=== PATIENT | female | born 1970 | race Caucasian/White ===

== ENCOUNTER 2017-08-15 00:47 | Inpatient (IN) ==
--- NOTE | 2017-08-15 01:26 | Emergency Department Note ---
Disposition Clinical Impression: Suicidal ideation Disposition: Admitted As Inpatient Condition: Good Time of Disposition: 05:25 (Admitted to 1A; Accepted by Dr. Orellana) Psych HPI - General Chief Complaint: ED Psychiatric Symptoms Stated Complaint: SI Time Seen by Provider: 08/15/17 01:25 Source: patient Mode of arrival: ambulatory Limitations: no limitations Nursing Notes Reviewed: Yes Vital Signs Reviewed: Yes - History of Present Illness HPI Narrative: Patient is a 46-year-old female with past history of bipolar disorder, borderline personality disorder, rheumatoid arthritis, previous drug abuse. She presents today due to suicidal ideation. Patient is currently in a rehabilitation center and has been clean for the past 2 months. Over the past few days, she has been came more depressed than usual, has thoughts of hurting herself, has a plan to shoot herself if she has access to a gun. She does have a history of suicide attempts in the past and has been hospitalized 2-3 times in the past due to ingestion of medications, cutting. She denies any cutting, self-harm, ingestions today prior to arrival. She denies any homicidal ideation , visual or auditory hallucinations. Denies any chest pain, shortness breath, nausea, vomiting, fevers, diarrhea, abdominal pain. She does have chronic joint pain from rheumatoid arthritis. - Related Data Home Medications Medication Instructions Recorded Confirmed Ibuprofen 04/15/17 Levothyroxine 04/15/17 Lisinopril 04/15/17 Symbicort 80/4.5 04/15/17 Ventolin Hfa 04/15/17 Zoloft 04/15/17 04/15/17 Previous Rx's Medication Instructions Recorded Clotrimazole [Itch Relief] 1 gm TP BID #15 cream..g. 04/15/17 Fluconazole [Diflucan] 150 mg PO Q3D #3 tab 04/15/17 HYDROcodone/Acet 5/325 mg [Marissa 1 tab PO Q6H PRN #10 tab 05/04/17 5-325 mg] Clindamycin [Cleocin] 300 mg PO TID #30 capsule 06/03/17 Ranitidine HCl [Acid Furnace Tender] 150 mg PO DAILY #30 tablet 06/06/17 GuaiFENesin ER [Mucinex] 1,200 mg PO BID #20 tbbp.12hr 06/13/17 Meclizine HCl [Verticalm] 25 mg PO TID PRN #20 tablet 06/13/17 methylPREDNISolone [Medrol] 4 mg PO TAPER #21 tablet 06/13/17 Allergies Allergy/AdvReac Type Severity Reaction Status Date / Time Penicillins [PCN] Allergy Anaphylaxis Verified 06/06/17 11:20 All systems ED: reviewed and negative except as stated. Constitutional: Denies: fever Cardiovascular: Denies: chest pain Respiratory: Denies: dyspnea Gastrointestinal: Denies: abdominal pain, nausea, vomiting, diarrhea Genitourinary: Denies: urgency, dysuria Musculoskeletal: Reports: arthralgia. Denies: myalgia Integumentary: Denies: rash Neurological: Denies: headache, weakness, numbness, paresthesias Past Medical History - Past Medical History Attestation: Yes The following information was validated with the patient. Source: patient Medical history: Reports: hypertension, RA, thyroid disease Psychiatric history: Reports: anxiety, bipolar, depression, PTSD, other - Social History Smoking Status: Current every day smoker Smokeless Tobacco Status: No Alcohol use: Reports: none Drug use: Reports: cocaine, marijuana Physical Exam - General Limitations: no limitations General appearance: alert, in no apparent distress - Head Head exam: atraumatic, normocephalic, normal inspection - Eye Eye exam: Present: normal appearance, PERRL, EOMI - ENT ENT exam: normal exam, normal oropharynx, mucous membranes moist - Neck Neck exam: Present: normal inspection, full ROM, trachea midline - Chest Chest inspection: Present: normal inspection, symmetric chest wall rise - Respiratory Respiratory exam: Present: normal lung sounds bilaterally - Cardiovascular Cardiovascular exam: Present: regular rate, normal rhythm, normal heart sounds - Abdominal Exam Abdominal exam: Present: soft, Non-Tender. Absent: tenderness, distention, guarding, rebound, rigidity - Extremities Exam Extremities exam: Present: normal inspection, full ROM. Absent: tenderness, pedal edema - Back Exam Back exam: Present: normal inspection, full ROM. Absent: tenderness - Neurological Exam Neurological exam: Present: alert, oriented X3 - Psychiatric Psychiatric exam: Present: normal affect, normal mood - Skin Skin exam: Present: warm, dry, intact, normal color Course Course Narrative: Vitals within normal limits. Physical exam benign. Patient has suicidal ideation with plan. We will obtain medical clearance and then call behavioral health team for further evaluation. 05:25 patient has been evaluated by behavioral team, psychiatrist has been consulted. Patient will be admitted at this time for further care. [place] slip has been signed and placed on chart. Vital Signs Temperature 97.6 F 08/15/17 00:48 Pulse Rate 89 08/15/17 00:48 Respiratory Rate 16 08/15/17 00:48 Blood Pressure 135/95 08/15/17 00:48 O2 Sat by Pulse Oximetry 97 08/15/17 00:48 Temperature 97.6 F 08/15/17 00:48 Pulse Rate 89 08/15/17 00:48 Respiratory Rate 16 08/15/17 00:48 Blood Pressure 135/95 08/15/17 00:48 O2 Sat by Pulse Oximetry 97 08/15/17 00:48 Oxygen Delivery Oxygen Delivery Room Air Psych - MDM Narrative Medical decision making narrative: Vitals within normal limits. Physical exam benign. Patient has suicidal ideation with plan. We will obtain medical clearance and then call behavioral health team for further evaluation. 05:25 patient has been evaluated by behavioral team, psychiatrist has been consulted. Patient will be admitted at this time for further care. [place] slip has been signed and placed on chart. - Lab Data Lab results reviewed: Yes I reviewed the patient's lab results. Result diagrams: 08/15/17 01:15 08/15/17 01:15 Lab Results 08/15/17 08/15/17 08/15/17 Range/Units 00:56 00:56 01:15 WBC 11.1 (4.3-11.1) K/mcL RBC 4.91 (3.82-4.97) M/mcL Hgb 14.6 (11.5-15.4) g/dL Hct 42.3 (35.3-44.9) % MCV 86.2 (83.0-100.0) fL MCH 29.7 (28.0-33.3) pg MCHC 34.5 (31.6-35.5) g/dL RDW 12.3 (11.5-14.5) % Plt Count 332 (140-400) K/mcL MPV 10.1 (9.4-12.4) fL Immature Gran % 0.7 (0-4) % Seg Neutrophils % 67.8 % Lymphocytes % 22.5 % Monocytes % 7.5 % Eosinophils % 0.7 % Basophils % 0.8 % Neutrophils # 7.5 (1.6-8.9) K/mcL Lymphocytes # 2.5 (0.6-4.6) K/mcL Monocytes # 0.8 (0.0-1.3) K/mcL Eosinophils # 0.1 (0.0-0.6) K/mcL Basophils # 0.1 (0.0-0.2) K/mcL Sodium (136-145) mEq/L Potassium (3.5-5.1) mEq/L Chloride (98-107) mEq/L Carbon Dioxide (23-29) mEq/L BUN (6-20) mg/dL Creatinine (0.60-1.20) mg/dL Est GFR ( Amer) (> 60) Est GFR (Non-Af Amer) (> 60) BUN/Creatinine Ratio (6-26) Glucose (70-105) mg/dL Calculated Osmolality (280-300) Calcium (8.6-10.3) mg/dL Urine Color Yellow (Yellow) Urine Clarity Clear (Clear) Urine pH 6.0 (5.0-8.0) pH Units Ur Specific [place] 1.020 (1.010-1.025) Urine Protein Negative (Neg-Trace) mg/dL Urine Glucose (UA) Normal (Normal) mg/dL Urine Ketones Negative (Negative) mg/dL Urine Blood Negative (Negative) Urine Nitrite Negative (Negative) Urine Bilirubin Negative (Negative) Urine Urobilinogen Normal (Normal) mg/dL Ur Leukocyte Esterase Negative (Negative) Salicylates (15.0-30.0) mg/dL Urine Opiates Screen Negative (Jlzwpz=476) ng/mL Acetaminophen (10-20) mcg/mL Ur Barbiturates Screen Negative (Bolefh=170) ng/mL Ur Phencyclidine Scrn Negative (Cutoff=25) ng/mL Ur Amphetamines Screen Negative (Lwatbo=9186) ng/mL U Benzodiazepines Scrn Negative (Ikgqmb=756) ng/mL Urine Cocaine Screen Negative (Cutoff= 300) ng/mL U Marijuana (THC) Screen Negative (Cutoff = 50) ng/mL Ethyl Alcohol (Less than 10) mg/dL 08/15/17 Range/Units 01:15 WBC (4.3-11.1) K/mcL RBC (3.82-4.97) M/mcL Hgb (11.5-15.4) g/dL Hct (35.3-44.9) % MCV (83.0-100.0) fL MCH (28.0-33.3) pg MCHC (31.6-35.5) g/dL RDW (11.5-14.5) % Plt Count (140-400) K/mcL MPV (9.4-12.4) fL Immature Gran % (0-4) % Seg Neutrophils % % Lymphocytes % % Monocytes % % Eosinophils % % Basophils % % Neutrophils # (1.6-8.9) K/mcL Lymphocytes # (0.6-4.6) K/mcL Monocytes # (0.0-1.3) K/mcL Eosinophils # (0.0-0.6) K/mcL Basophils # (0.0-0.2) K/mcL Sodium 136 (136-145) mEq/L Potassium 4.0 (3.5-5.1) mEq/L Chloride 105 (98-107) mEq/L Carbon Dioxide 22 L (23-29) mEq/L BUN 6 (6-20) mg/dL Creatinine 0.59 L (0.60-1.20) mg/dL Est GFR ( Amer) > 60 (> 60) Est GFR (Non-Af Amer) > 60 (> 60) BUN/Creatinine Ratio 10 (6-26) Glucose 115 H (70-105) mg/dL Calculated Osmolality 281 (280-300) Calcium 10.0 (8.6-10.3) mg/dL Urine Color (Yellow) Urine Clarity (Clear) Urine pH (5.0-8.0) pH Units Ur Specific [place] (1.010-1.025) Urine Protein (Neg-Trace) mg/dL Urine Glucose (UA) (Normal) mg/dL Urine Ketones (Negative) mg/dL Urine Blood (Negative) Urine Nitrite (Negative) Urine Bilirubin (Negative) Urine Urobilinogen (Normal) mg/dL Ur Leukocyte Esterase (Negative) Salicylates < 2.5 L (15.0-30.0) mg/dL Urine Opiates Screen (Xhowpe=799) ng/mL Acetaminophen < 10 L (10-20) mcg/mL Ur Barbiturates Screen (Ppdguq=713) ng/mL Ur Phencyclidine Scrn (Cutoff=25) ng/mL Ur Amphetamines Screen (Ydxyzl=2996) ng/mL U Benzodiazepines Scrn (Axwxbs=156) ng/mL Urine Cocaine Screen (Cutoff= 300) ng/mL U Marijuana (THC) Screen (Cutoff = 50) ng/mL Ethyl Alcohol < 10 (Less than 10) mg/dL Psychiatric Medical Clearance - Medical Clearance Checklist Medical History: Suicidal ideation (Acute) Benign paroxysmal positional vertigo (Inactive) Cellulitis (Inactive) Chest pain (Inactive) Exudative pharyngitis (Inactive) History of substance abuse (Inactive) Plantar fasciitis of right foot (Inactive) Yeast infection of the skin (Inactive) No Social History Section defined Current Vitals: Last Vital Signs Temp 97.6 F 08/15/17 00:48 Pulse 89 08/15/17 00:48 Resp 16 08/15/17 00:48 BP 135/95 08/15/17 00:48 Pulse Ox 97 08/15/17 00:48 Psychiatric Lab Panel: Drug Levels and Toxicity 08/15/17 08/15/17 00:56 01:15 Urine Opiates Screen Negative Acetaminophen < 10 L Ur Barbiturates Screen Negative Ur Phencyclidine Scrn Negative Ur Amphetamines Screen Negative U Benzodiazepines Scrn Negative Urine Cocaine Screen Negative U Marijuana (THC) Screen Negative Ethyl Alcohol < 10 Abnormal Labs: Abnormal lab results Carbon Dioxide 22 mEq/L (23-29) L 08/15/17 01:15 Creatinine 0.59 mg/dL (0.60-1.20) L 08/15/17 01:15 Glucose 115 mg/dL (70-105) H 08/15/17 01:15 Salicylates < 2.5 mg/dL (15.0-30.0) L 08/15/17 01:15 Acetaminophen < 10 mcg/mL (10-20) L 08/15/17 01:15 Attestation Statement - Attestation Attestation: Dr. Hebert note: Patient medically stable in the ER. Admitted to psychiatrist on-call in stable and improved condition. Suicidal ideation with plan.
[2017-08-15 01:28] LABS: Basophils # 0.1 K/mcL (0.0-0.2); Basophils % 0.8 %; Eosinophils # 0.1 K/mcL (0.0-0.6); Eosinophils % 0.7 %; Hematocrit 42.3 % (35.3-44.9); Hemoglobin 14.6 g/dL (11.5-15.4); Immature Granulocytes % 0.7 % (0-4); Lymphocytes # 2.5 K/mcL (0.6-4.6); Lymphocytes % 22.5 %; Mean Corpuscular HGB Conc 34.5 g/dL (31.6-35.5); Mean Corpuscular Hemoglobin 29.7 pg (28.0-33.3); Mean Corpuscular Volume 86.2 fL (83.0-100.0); Mean Platelet Volume 10.1 fL (9.4-12.4); Monocytes # 0.8 K/mcL (0.0-1.3); Monocytes % 7.5 %; Neutrophils # 7.5 K/mcL (1.6-8.9); Platelet Count 332 K/mcL (140-400); Red Blood Count 4.91 M/mcL (3.82-4.97); Red Cell Distribution Width 12.3 % (11.5-14.5); Segmented Neutrophils % 67.8 %
[2017-08-15 01:29] LABS: Bilirubin,Urine Negative (Negative); Blood,Urine Negative (Negative); Clarity,Urine Clear (Clear); Color,Urine Yellow (Yellow); Glucose,Urine (UA) Normal (Normal); Ketones,Urine Negative (Negative); Leukocyte Esterase,Urine Negative (Negative); Nitrite,Urine Negative (Negative); Protein,Urine Negative (Neg-Trace); Urobilinogen,Urine Normal (Normal)
[2017-08-15 01:53] LABS: Amphetamine Screen,Urine Negative ng/mL (Cutoff=1000); Barbiturate Screen,Urine Negative ng/mL (Cutoff=200); Benzodiazepines Screen,Urine Negative ng/mL (Cutoff=200); Cannabinoid Screen,Urine Negative ng/mL (Cutoff = 50); Cocaine Screen,Urine Negative ng/mL (Cutoff= 300); Opiate Screen,Urine Negative ng/mL (Cutoff=300); Phencyclidine Screen,Urine Negative ng/mL (Cutoff=25)
[2017-08-15 02:17] LABS: Acetaminophen < 10 mcg/mL (10-20); BUN/Creatinine Ratio 10 (6-26); Blood Urea Nitrogen 6 mg/dL (6-20); Carbon Dioxide 22 mEq/L (23-29); Chloride 105 mEq/L (98-107); Ethanol < 10 mg/dL (Less than 10); Glucose 115 mg/dL (70-105); Osmolality,Calculated 281 (280-300); Salicylate < 2.5 mg/dL (15.0-30.0); Sodium 136 mEq/L (136-145); eGFR For African Americans > 60 (> 60); eGFR For Non-African Americans > 60 (> 60)
[2017-08-15] MEDS ORDERED: Mag Hydrox/Al Hydrox/Simeth 30 ML UDC PO PRN (05:41)
[2017-08-15] MEDS ORDERED: *HR* LORazepam 1 MG TABLET PO PRN (05:41)
[2017-08-15] MEDS ORDERED: Haloperidol Lactate 5 MG/ML VIAL IM PRN (05:41)
[2017-08-15] MEDS ORDERED: *HR* LORazepam 2 MG/ML VIAL IM PRN (05:41)
--- NOTE | 2017-08-15 16:00 | Psychiatry History & Physical ---
Date of Encounter: 08/15/17 Time of Encounter: 16:00 History of Present Illness Patient Stated Chief Complaint: suicide idation Medicare Admission Attestation: For traditional Medicare patients the provided hospital inpatient services are reasonable and necessary and in the case of services not specified as inpatient -only under 42 CFR 419.22 (n), that they are appropriately provided as inpatient services in accordance 42 CFR 412.3. For Critical Access Hospital the patient may reasonably be expected to be discharged or transferred to a hospital within 96 hours after admission to the Critical Access Hospital. Admitted From: Emergency Dept Plans for Post Hospital Care: Transfer Other History of Present Illness: Ms. Becerril is a 46 year old female The patient was brought in from [facility]. She had been residing there. Chief complaint having thoughts of not waking up and lack of sleep I was depressed and was not sure whether was recovery versus depression. History of present illness. Last night the patient had depression she was tossing and turning and she saw images where she shot herself with a gun. She is praying that she might and she thought about going and getting a gun and using she presented in the emergency room. The patient has a history of substance abuse and her last use was 03/31/2017. This included cocaine. She had 5 months clean and she has a history of a long period of sobriety 10 years. 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 Patient is also smoker of tobacco. The patient's been depressed and going to mental health. Her previous discharge summary shows inpatient and outpatient treatment or psychiatric hospitalizations or too numerous to count there began at age 16 with an overdose of sleeping pills and included counseling at site [facility]. A diagnosis of bipolar disorder was given but later borderline personality disorder was diagnosed the alcohol caused anger problems and relationship problems no legal problems or health problems. She was 30 she was seen by Dr. Dwaine long [facility] she 30 days clean but relapsed. Between the ages of 32 and 46 she had her period of time. Past medical history essentially negative for surgery but she did have an overdose of Geodon. Illnesses include GERD hypertension thyroid disease. Patient has problems and allergy to penicillin. She is on Synthroid lisinopril Motrin. Family history significant for mother with heroin abuse. Social history reveals the patient was in the [employer]. She did not go to [place] to care for mother. Review of systems. The patient has a dermatitis with scratching on the anterior portion legs. Patient has a diagnosis of rheumatoid arthritis and now needs to get rheumatoid treatment but to do this she may have to go to [email or web address] and the [facility] [place] she feels that this will damage her relationship with her son on her Past Med Surg Social Fam HX - Past Medical History Source: patient Medical history: hypertension, RA, thyroid disease - Past Psychiatric History Psychiatric history: Reports: bipolar, previous psychiatric hospitalization Family psychiatric history: Yes Family History of Suicide: None - Past Surgical History Surgical History: no surgical history - Social History Smoking Status: Current every day smoker Smokeless Tobacco Status: No Alcohol use: none Drug use: cocaine, marijuana Occupational status: unemployed Current living situation: Other Activity Level: Independent ambulation Recent Out of Country Travel Within the Last 8 Weeks: No Exposure or Possible Exposure to Illness During Travel: No Medications & Allergies Ibuprofen [Motrin] 600 mg PO Q8HR PRN 08/15/17 [History] Levothyroxine Sodium [Synthroid] 200 mcg PO 0630 08/15/17 [History] Lisinopril [Zestril] 10 mg PO DAILY 08/15/17 [History] Sertraline [Zoloft] 100 mg PO DAILY 08/15/17 [History] 3 Allergy/AdvReac Type Severity Reaction Status Date / Time Penicillins [PCN] Allergy Anaphylaxis Verified 08/15/17 10:21 Review of Systems ROS limited: due to patient condition Psychiatric: Reports: depression, suicidal ideation, difficulty concentrating Exam - HEENT Head exam IM: Present: atraumatic Eye exam IM: Present: EOMI, normal appearance, PERRL ENT exam IM: Present: normal exam - Neurological Neurological exam: Present: CN II-XII intact - Respiratory Respiratory exam IM: Present: CTAB - GI/Abdominal GI/Abdominal exam IM: Present: normal bowel sounds, soft. Absent: tenderness - Extremities Extremities exam IM: Present: full ROM - Skin Skin exam IM: Present: dry, warm - Constitutional Vitals: Temp Pulse Resp BP Pulse Ox 97.3 F L 73 14 119/71 97 08/15/17 09:00 08/15/17 09:00 08/15/17 09:00 08/15/17 09:00 08/15/17 00:48 General appearance: age & developmentally appropriate, well-groomed, well- nourished - Musculoskeletal Gait: normal Station: relaxed Strength & Tone: normal for patient - Psychiatric Patient Orientation: Yes Person, Yes Time, Yes Place Level of alertness: Alert Behavior: calm, cooperative Mood Description: Depressed Affect description: full range, tearful Speech Volume: Normal, Soft/Quiet Speech pattern: normal rate, normal rhythm, normal tone, fluent, spontaneous, monotone Language & Vocabulary: consistent with education Thought Process: Linear, Goal Oriented, Thought Blocking Thought Content: Yes Suicidal ideation, No Homicidal ideation, No Overt delusions Perceptual Disturbances: No Auditory hallucinations, No Visual hallucinations Attention Span Ability: Capable of Focused Attention Memory Description: Grossly Intact Patient Reliability: Questionable Historian Fund of knowledge: Yes abstraction ability, Yes average, Yes aware of current events Intelligence Estimate: Average Judgment: Limited Insight: Partial Results - Labs Labs: Laboratory Last Values WBC 11.1 K/mcL (4.3-11.1) 08/15/17 01:15 RBC 4.91 M/mcL (3.82-4.97) 08/15/17 01:15 Hgb 14.6 g/dL (11.5-15.4) 08/15/17 01:15 Hct 42.3 % (35.3-44.9) 08/15/17 01:15 MCV 86.2 fL (83.0-100.0) 08/15/17 01:15 MCH 29.7 pg (28.0-33.3) 08/15/17 01:15 MCHC 34.5 g/dL (31.6-35.5) 08/15/17 01:15 RDW 12.3 % (11.5-14.5) 08/15/17 01:15 Plt Count 332 K/mcL (140-400) 08/15/17 01:15 MPV 10.1 fL (9.4-12.4) 08/15/17 01:15 Immature Gran % 0.7 % (0-4) 08/15/17 01:15 Seg Neutrophils % 67.8 % 08/15/17 01:15 Lymphocytes % 22.5 % 08/15/17 01:15 Monocytes % 7.5 % 08/15/17 01:15 Eosinophils % 0.7 % 08/15/17 01:15 Basophils % 0.8 % 08/15/17 01:15 Neutrophils # 7.5 K/mcL (1.6-8.9) 08/15/17 01:15 Lymphocytes # 2.5 K/mcL (0.6-4.6) 08/15/17 01:15 Monocytes # 0.8 K/mcL (0.0-1.3) 08/15/17 01:15 Eosinophils # 0.1 K/mcL (0.0-0.6) 08/15/17 01:15 Basophils # 0.1 K/mcL (0.0-0.2) 08/15/17 01:15 Sodium 136 mEq/L (136-145) 08/15/17 01:15 Potassium 4.0 mEq/L (3.5-5.1) 08/15/17 01:15 Chloride 105 mEq/L (98-107) 08/15/17 01:15 Carbon Dioxide 22 mEq/L (23-29) L 08/15/17 01:15 BUN 6 mg/dL (6-20) 08/15/17 01:15 Creatinine 0.59 mg/dL (0.60-1.20) L 08/15/17 01:15 Est GFR ( Amer) > 60 (> 60) 08/15/17 01:15 Est GFR (Non-Af Amer) > 60 (> 60) 08/15/17 01:15 BUN/Creatinine Ratio 10 (6-26) 08/15/17 01:15 Glucose 115 mg/dL (70-105) H 08/15/17 01:15 Calculated Osmolality 281 (280-300) 08/15/17 01:15 Calcium 10.0 mg/dL (8.6-10.3) 08/15/17 01:15 Urine Color Yellow (Yellow) 08/15/17 00:56 Urine Clarity Clear (Clear) 08/15/17 00:56 Urine pH 6.0 pH Units (5.0-8.0) 08/15/17 00:56 Ur Specific [place] 1.020 (1.010-1.025) 08/15/17 00:56 Urine Protein Negative mg/dL (Neg-Trace) 08/15/17 00:56 Urine Glucose (UA) Normal mg/dL (Normal) 08/15/17 00:56 Urine Ketones Negative mg/dL (Negative) 04/20/18 00:56 Urine Blood Negative (Negative) 08/15/17 00:56 Urine Nitrite Negative (Negative) 08/15/17 00:56 Urine Bilirubin Negative (Negative) 08/15/17 00:56 Urine Urobilinogen Normal mg/dL (Normal) 08/15/17 00:56 Ur Leukocyte Esterase Negative (Negative) 08/15/17 00:56 Salicylates < 2.5 mg/dL (15.0-30.0) L 08/15/17 01:15 Urine Opiates Screen Negative ng/mL (Sulxlr=229) 08/15/17 00:56 Acetaminophen < 10 mcg/mL (10-20) L 08/15/17 01:15 Ur Barbiturates Screen Negative ng/mL (Kdanrz=536) 08/15/17 00:56 Ur Phencyclidine Scrn Negative ng/mL (Cutoff=25) 08/15/17 00:56 Ur Amphetamines Screen Negative ng/mL (Moqpgm=5568) 08/15/17 00:56 U Benzodiazepines Scrn Negative ng/mL (Wtydib=856) 08/15/17 00:56 Urine Cocaine Screen Negative ng/mL (Cutoff= 300) 08/15/17 00:56 U Marijuana (THC) Screen Negative ng/mL (Cutoff = 50) 08/15/17 00:56 Ethyl Alcohol < 10 mg/dL (Less than 10) 08/15/17 01:15 Assessment and Plan (1) Bipolar disorder, current episode mixed, severe, without psychotic features Current visit: Yes Status: Acute Plan: Admit inpatient for safety and stabilization, Close observation Risks, benefits, side effects, alternatives discussed w/pt: Yes Patient agreeable to treatment: Yes Plans for Post Hospital Care: at Medical Facility (2) Other specific personality disorders Current visit: Yes Status: Acute Plan: Admit inpatient for safety and stabilization Risks, benefits, side effects, alternatives discussed w/pt: Yes Patient agreeable to treatment: Yes Plans for Post Hospital Care: at Home (3) Suicidal ideation Current visit: Yes Status: Acute Plan: Admit inpatient for safety and stabilization, Close observation Risks, benefits, side effects, alternatives discussed w/pt: Yes Patient agreeable to treatment: Yes Plans for Post Hospital Care: Transfer Other Estimated Length of Stay (Days): 7
[2017-08-15] MEDS: Ibuprofen 400 MG TABLET PO PRN (20:30)
[2017-08-15] MEDS: hydrOXYzine pamoate 25 MG CAPSULE PO PRN (21:35)
[2017-08-15] MEDS: traZODone 50 MG TABLET PO PRN (21:35)
[2017-08-16] MEDS: Venlafaxine XR (24 HR) 150 MG CAP.ER.24H PO SCH (09:13)
[2017-08-16] MEDS: Ibuprofen 400 MG TABLET PO PRN ×2 (09:15→16:43)
--- NOTE | 2017-08-16 15:42 | Psychiatry Progress Note ---
Date of Encounter: 08/16/17 Time of Encounter: 12:45 Subjective Interval history: Patient seen and discussed on rounds by a multidisciplinary treatment team. There no reported behavioral issues or incident overnight. She was calm, cooperative and well related. Patient admitted yesterday for SI. She continue to endorse depressive symptoms and passive suicidal thoughts with no plan or intent. She reported worsening depressive symptoms the past week due to ongoing stressors identified as her recent diagnosis of RA, being constant pain and her inability to get a follow up to see a auto body worker till October. She was started on Effexor ER 150mg yesterday and denied any noted side effects. On review of symptoms, she denied any mood or psychotic symptoms including AH/VH/HI. She reported 5months of sobriety and utox was negative and presentation. Review of Systems Constitutional: Denies: fever, chills, weakness, weight change Eyes: Denies: eye pain, vision change Ears, Nose, Throat: Denies: ear pain, throat pain, dental pain, hearing loss, congestion Cardiovascular: Denies: chest pain, palpitations, dyspnea on exertion Respiratory: Denies: cough, dyspnea, wheezes Gastrointestinal: Denies: abdominal pain, nausea, vomiting, diarrhea, constipation Musculoskeletal: Reports: joint pain, myalgia Psychiatric: Reports: depression, suicidal ideation, difficulty concentrating Results - Vital Signs Vital Signs: Temp Pulse Resp BP Pulse Ox 97.2 F L 76 16 122/78 97 08/16/17 09:00 08/16/17 09:00 08/16/17 09:00 08/16/17 09:00 08/15/17 00:48 Assessment and Plan (1) Suicidal ideation Current visit: Yes Status: Acute Risks, benefits, side effects, alternatives discussed w/pt: Yes Patient agreeable to treatment: Yes (2) Bipolar disorder, current episode mixed, severe, without psychotic features Current visit: Yes Status: Acute Risks, benefits, side effects, alternatives discussed w/pt: Yes Patient agreeable to treatment: Yes (3) Other specific personality disorders Current visit: Yes Status: Acute Risks, benefits, side effects, alternatives discussed w/pt: Yes Patient agreeable to treatment: Yes Consult Discharge Plan - Plan Referrals: [facility] [Outside] - 09/15/17 1:00 pm (The above appointment is with for Dr. Tammie Roylance outpatient psychiatric assessment and medication management services. Please arrive 30 minutes early to complete paperwork. Please bring your photo ID (bring proof of address if you do not have an ID) and medication list. The above appointment(s) reflects first availability. You may contact the office regularly to check for cancellations that may allow you to be seen sooner. Additionally, the new director of casework services assigned to you will contact you directly to schedule your intake appointment for case management and mental health counseling services. ) [facility] [Outside] (You will resume weekly substance abuse and mental health counseling services with [facility] upon return to sober living.) Psychiatry Exam - Constitutional Vitals: Temp Pulse Resp BP Pulse Ox 97.2 F L 76 16 122/78 97 08/16/17 09:00 08/16/17 09:00 08/16/17 09:00 08/16/17 09:00 08/15/17 00:48 General appearance: age & developmentally appropriate - Musculoskeletal Gait: slow - Psychiatric Patient Orientation: Yes Person, Yes Time, Yes Place, Yes Circumstance Level of alertness: Alert Behavior: calm, cooperative Psychomotor activity: Normal Eye Contact: Maintains Eye Contact Mood Description: Depressed Affect description: congruent with mood Speech Volume: Normal Speech pattern: normal rate, normal rhythm, normal tone Language & Vocabulary: consistent with education Thought Process: Logical, Goal Oriented Thought Content: Yes Suicidal ideation Perceptual Disturbances: No Auditory hallucinations, No Visual hallucinations Attention Span Ability: Capable of Focused Attention Memory Description: Grossly Intact Patient Reliability: Reliable Historian Fund of knowledge: Yes average Intelligence Estimate: Average Judgment: Poor Insight: Partial
[2017-08-16] MEDS: traZODone 50 MG TABLET PO PRN (21:12)
[2017-08-17] MEDS: Venlafaxine XR (24 HR) 150 MG CAP.ER.24H PO SCH (10:32)
[2017-08-17] MEDS: MOM Conc 10 ML UD.LIQ PO PRN (12:50)
--- NOTE | 2017-08-17 13:10 | Psychiatry Progress Note ---
Date of Encounter: 08/17/17 Time of Encounter: 01:04 Subjective Interval history: Patient seen and discussed on rounds by a multidisciplinary treatment team. There no reported behavioral issues or incident overnight. She was calm, cooperative and well related. She reported improvement improvement her depressive symptoms and continue to endorse SI. Feels hopeless, helpless and does not trust anyone any more. She is compliant with her medications and denied any side effects. Continue to reported suboptimal effect of her Ibuprofen , On review of symptoms, she denied any mood or psychotic symptoms including AH /VH/HI. Review of Systems Constitutional: Denies: fever, chills, weakness, weight change Eyes: Denies: eye pain, vision change Ears, Nose, Throat: Denies: ear pain, throat pain, dental pain, hearing loss, congestion Cardiovascular: Denies: chest pain, palpitations, dyspnea on exertion Respiratory: Denies: cough, dyspnea, wheezes Gastrointestinal: Denies: abdominal pain, nausea, vomiting, diarrhea, constipation Musculoskeletal: Denies: joint swelling, joint pain Neurological: Denies: headache, weakness, numbness, memory loss Psychiatric: Reports: depression, suicidal ideation, difficulty concentrating, hopelessness Results - Vital Signs Vital Signs: Temp Pulse Resp BP Pulse Ox 97.6 F 78 16 114/79 97 08/17/17 09:00 08/17/17 09:00 08/17/17 09:00 08/17/17 09:00 08/15/17 00:48 Assessment and Plan (1) Suicidal ideation Current visit: Yes Status: Acute Risks, benefits, side effects, alternatives discussed w/pt: Yes Patient agreeable to treatment: Yes (2) Bipolar disorder, current episode mixed, severe, without psychotic features Current visit: Yes Status: Acute Risks, benefits, side effects, alternatives discussed w/pt: Yes Patient agreeable to treatment: Yes (3) Other specific personality disorders Current visit: Yes Status: Acute Risks, benefits, side effects, alternatives discussed w/pt: Yes Patient agreeable to treatment: Yes Consult Discharge Plan - Plan Referrals: [facility] [Outside] - 09/15/17 1:00 pm (The above appointment is with for Dr. Tammie Humphrey outpatient psychiatric assessment and medication management services. Please arrive 30 minutes early to complete paperwork. Please bring your photo ID (bring proof of address if you do not have an ID) and medication list. The above appointment(s) reflects first availability. You may contact the office regularly to check for cancellations that may allow you to be seen sooner. Additionally, the new family preservation caseworker assigned to you will contact you directly to schedule your intake appointment for case management and mental health counseling services. ) [facility] (You will resume weekly substance abuse and mental health counseling services with [facility] upon return to sober living.) Psychiatry Exam - Constitutional Vitals: Temp Pulse Resp BP Pulse Ox 97.6 F 78 16 114/79 97 08/17/17 09:00 08/17/17 09:00 08/17/17 09:00 08/17/17 09:00 08/15/17 00:48 General appearance: age & developmentally appropriate - Musculoskeletal Gait: normal Strength & Tone: normal for patient - Psychiatric Patient Orientation: Yes Person, Yes Time, Yes Place, Yes Circumstance Level of alertness: Alert Behavior: calm, cooperative Psychomotor activity: Slowed Eye Contact: Maintains Eye Contact Mood Description: Depressed Affect description: labile Speech Volume: Soft/Quiet Speech pattern: clear, coherent, slowed Language & Vocabulary: consistent with education Thought Process: Logical, Goal Oriented Thought Content: Yes Suicidal ideation Perceptual Disturbances: Yes Reacting to internal stimuli Attention Span Ability: Capable of Focused Attention Memory Description: Grossly Intact Patient Reliability: Reliable Historian Fund of knowledge: Yes average Intelligence Estimate: Average Judgment: Poor Insight: Minimal
[2017-08-17] MEDS: Desitin (Zinc Oxide) 56 GM TUBE TP PRN (16:37)
[2017-08-17] MEDS: Ibuprofen 400 MG TABLET PO PRN (18:44)
[2017-08-17] MEDS: traZODone 50 MG TABLET PO PRN (21:32)
[2017-08-17] MEDS: hydrOXYzine pamoate 25 MG CAPSULE PO PRN (21:34)
[2017-08-18] MEDS: Venlafaxine XR (24 HR) 150 MG CAP.ER.24H PO SCH (08:17)
[2017-08-18] MEDS: MOM Conc 10 ML UD.LIQ PO PRN (08:23)
--- NOTE | 2017-08-18 12:44 | Psychiatry Progress Note ---
Date of Encounter: 08/18/17 Time of Encounter: 12:05 Subjective Interval history: Ms Sparrow seen today , chart reviewed and case d/w treatment team. she as per treatent team is still depress and focused on her pain. she has h/o bipolar , personality traits and suicidal ideation, she has multiple inpatient admission since age 16 and has been tried on different medications. at present on effexor 150 mg, prazosin , levothyroxine . she is still feeling hopeless, sad, decrease energy and lack of motivation , anhedonia , denies suicidal ideation, denies psychosis. not sleeping good because of apin and then tired all day. will add gabapentin for anxiety and will hellp her pain , also will add baclofen . denies side effects, agreed to the treatment plan. Review of Systems Psychiatric: Reports: depression, suicidal ideation, difficulty concentrating, hopelessness Results - Vital Signs Vital Signs: Temp Pulse Resp BP Pulse Ox 97.7 F 78 16 118/81 97 08/18/17 09:00 08/18/17 09:00 08/18/17 09:00 08/18/17 09:00 08/15/17 00:48 Assessment and Plan (1) Suicidal ideation Current visit: Yes Status: Acute Plan: Continue hospitalization, Close observation, Suicide Precautions per unit protocol, Encourage participation in unit milieu, Group Therapy, Monitor sleep, Monitor appetite, Family/Supportive other meeting Risks, benefits, side effects, alternatives discussed w/pt: Yes Patient agreeable to treatment: Yes (2) Bipolar disorder, current episode mixed, severe, without psychotic features Current visit: Yes Status: Acute Plan: Continue hospitalization, Close observation, Suicide Precautions per unit protocol, Encourage participation in unit milieu, Group Therapy, Monitor sleep, Monitor appetite, Family/Supportive other meeting Risks, benefits, side effects, alternatives discussed w/pt: Yes Patient agreeable to treatment: Yes (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 Tammie Humphrey outpatient psychiatric assessment and medication management services. Please arrive 30 minutes early to complete paperwork. Please bring your photo ID (bring proof of address if you do not have an ID) and medication list. The above appointment(s) reflects first availability. You may contact the office regularly to check for cancellations that may allow you to be seen sooner. Additionally, the new continuous pillowcase cutter assigned to you will contact you directly to schedule your intake appointment for case management and mental health counseling services. ) [facility] [Outside] (You will resume weekly substance abuse and mental health counseling services with [facility] upon return to sober living.) Psychiatry Exam - Constitutional Vitals: Temp Pulse Resp BP Pulse Ox 97.7 F 78 16 118/81 97 08/18/17 09:00 08/18/17 09:00 08/18/17 09:00 08/18/17 09:00 08/15/17 00:48 General appearance: age & developmentally appropriate - Musculoskeletal Gait: normal Station: other Strength & Tone: normal for patient - Psychiatric Patient Orientation: Yes Person, Yes Time, Yes Place Level of alertness: Alert Behavior: cooperative, withdrawn Psychomotor activity: Slowed Eye Contact: Minimal Contact Mood Description: Depressed, Anxious Affect description: congruent with mood Speech Volume: Soft/Quiet Speech pattern: coherent, slowed Language & Vocabulary: consistent with education Thought Process: Linear, Goal Oriented Thought Content: Yes Guilt Perceptual Disturbances: No Auditory hallucinations, No Visual hallucinations Attention Span Ability: Capable of Focused Attention Memory Description: Grossly Intact Patient Reliability: Reliable Historian Fund of knowledge: Yes abstraction ability, Yes aware of current events Intelligence Estimate: Average Judgment: Fair Insight: Partial
[2017-08-18] MEDS: Baclofen 10 MG TABLET PO SCH ×2 (15:04→21:40)
[2017-08-18] MEDS: hydrOXYzine pamoate 25 MG CAPSULE PO PRN (15:04)
[2017-08-18] MEDS: Gabapentin 100 MG CAPSULE PO SCH ×2 (15:04→21:41)
[2017-08-18] MEDS: traZODone 50 MG TABLET PO PRN (22:49)
[2017-08-19] MEDS: Baclofen 10 MG TABLET PO SCH ×3 (08:06→21:38)
[2017-08-19] MEDS: MOM Conc 10 ML UD.LIQ PO SCH (08:06)
[2017-08-19] MEDS: Gabapentin 100 MG CAPSULE PO SCH ×3 (08:07→21:36)
[2017-08-19] MEDS: Venlafaxine XR (24 HR) 150 MG CAP.ER.24H PO SCH (08:07)
--- NOTE | 2017-08-19 10:52 | Psychiatry Progress Note ---
Date of Encounter: 08/19/17 Time of Encounter: 10:36 Subjective Interval history: Patient seen today , case d/w treatment team. states i am much better today , i slept better than before i woke up only 3 times. i do not feel so hopeless like before , i feel my mind is clearing. she still remains depress, but has had no suicidal thoughts since yesterday and not feeling as guilty and hopeless. she is more verbal and asking something for constipation and milk of magnesia not helping. will add colace to her treatment plan. Review of Systems Psychiatric: Reports: depression, suicidal ideation, difficulty concentrating, hopelessness Results - Vital Signs Vital Signs: Temp Pulse Resp BP Pulse Ox 98.3 F 77 18 104/75 97 08/19/17 09:00 08/19/17 09:00 08/19/17 09:00 08/19/17 09:00 08/15/17 00:48 Assessment and Plan (1) Suicidal ideation Current visit: Yes Status: Acute Risks, benefits, side effects, alternatives discussed w/pt: Yes Patient agreeable to treatment: Yes (2) Bipolar disorder, current episode mixed, severe, without psychotic features Current visit: Yes Status: Acute Risks, benefits, side effects, alternatives discussed w/pt: Yes Patient agreeable to treatment: Yes (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 Tammie Humphrey outpatient psychiatric assessment and medication management services. Please arrive 30 minutes early to complete paperwork. Please bring your photo ID (bring proof of address if you do not have an ID) and medication list. The above appointment(s) reflects first availability. You may contact the office regularly to check for cancellations that may allow you to be seen sooner. Additionally, the new case management social worker assigned to you will contact you directly to schedule your intake appointment for case management and mental health counseling services. ) [facility] [Outside] (You will resume weekly substance abuse and mental health counseling services with [facility] upon return to sober living.) Psychiatry Exam - Constitutional Vitals: Temp Pulse Resp BP Pulse Ox 98.3 F 77 18 104/75 97 08/19/17 09:00 08/19/17 09:00 08/19/17 09:00 08/19/17 09:00 08/15/17 00:48 General appearance: age & developmentally appropriate - Musculoskeletal Gait: normal Station: other Strength & Tone: normal for patient - Psychiatric Patient Orientation: Yes Person, Yes Time, Yes Place Level of alertness: Alert Behavior: cooperative, withdrawn Psychomotor activity: Slowed Eye Contact: Maintains Eye Contact Mood Description: Depressed, Anxious Affect description: congruent with mood Speech Volume: Normal, Soft/Quiet Speech pattern: slowed Language & Vocabulary: consistent with education Thought Process: Linear, Goal Oriented Thought Content: Yes Preoccupation, Yes Guilt Perceptual Disturbances: No Auditory hallucinations, No Visual hallucinations Attention Span Ability: Capable of Focused Attention Memory Description: Grossly Intact Patient Reliability: Reliable Historian Fund of knowledge: Yes abstraction ability, Yes aware of current events Intelligence Estimate: Average Judgment: Limited Insight: Full
[2017-08-19] MEDS: Desitin (Zinc Oxide) 56 GM TUBE TP PRN (14:17)
[2017-08-19] MEDS: hydrOXYzine pamoate 25 MG CAPSULE PO PRN ×2 (14:18→21:44)
[2017-08-19] MEDS: traZODone 50 MG TABLET PO PRN (21:37)
[2017-08-20] MEDS: Venlafaxine XR (24 HR) 75 MG CAP.ER.24H PO SCH (09:20)
[2017-08-20] MEDS: Venlafaxine XR (24 HR) 150 MG CAP.ER.24H PO SCH (09:20)
[2017-08-20] MEDS: Gabapentin 100 MG CAPSULE PO SCH ×3 (09:21→20:24)
[2017-08-20] MEDS: Baclofen 10 MG TABLET PO SCH (09:22)
[2017-08-20] MEDS: MOM Conc 10 ML UD.LIQ PO SCH (09:24)
[2017-08-20] MEDS: hydrOXYzine pamoate 25 MG CAPSULE PO PRN ×2 (13:19→20:24)
--- NOTE | 2017-08-20 14:53 | Psychiatry Progress Note ---
Date of Encounter: 08/20/17 Time of Encounter: 14:25 Subjective Interval history: Patient seen today case d/w treatment team , she is upset about recovery career counselor, who is not allowing her to take gabapentin and baclofen as they have helped her so much. [facility] will not accept RA treatment. she is very upset states i was doing better and now i will go back to what i was before. states now i have to take other medication she is irritable and malone and concerned about her treatment. will decrease and dc gabapentin and baclofen. will start buspar 5 mg tid . and add lamictal 25 mg will help her moods irritabilty and patient agred with the plan. Review of Systems Psychiatric: Reports: depression, suicidal ideation, difficulty concentrating, hopelessness Results - Vital Signs Vital Signs: Temp Pulse Resp BP Pulse Ox 97.9 F 81 18 123/76 97 08/20/17 09:00 08/20/17 09:00 08/20/17 09:00 08/20/17 09:00 08/15/17 00:48 Assessment and Plan (1) Suicidal ideation Current visit: Yes Status: Acute Risks, benefits, side effects, alternatives discussed w/pt: Yes Patient agreeable to treatment: Yes (2) Bipolar disorder, current episode mixed, severe, without psychotic features Current visit: Yes Status: Acute Risks, benefits, side effects, alternatives discussed w/pt: Yes Patient agreeable to treatment: Yes (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 Tammie Humphrey outpatient psychiatric assessment and medication management services. The above appointment is with for outpatient psychiatric assessment and medication management services. Please arrive 30 minutes early to complete paperwork. Please bring your photo ID (bring proof of address if you do not have an ID) and medication list. The above appointment(s) reflects first availability. You may contact the office regularly to check for cancellations that may allow you to be seen sooner. Additionally, the new counseling assigned to you will contact you directly to schedule your intake appointment for case management and mental health counseling services. ) [facility] [Outside] (You will resume weekly substance abuse counseling services on discharge from the hospital. ) Psychiatry Exam - Constitutional Vitals: Temp Pulse Resp BP Pulse Ox 97.9 F 81 18 123/76 97 08/20/17 09:00 08/20/17 09:00 08/20/17 09:00 08/20/17 09:00 08/15/17 00:48 General appearance: age & developmentally appropriate - Musculoskeletal Gait: slow Station: other Strength & Tone: normal for patient - Psychiatric Patient Orientation: Yes Person, Yes Time, Yes Place Level of alertness: Alert Behavior: agitated Eye Contact: Minimal Contact Mood Description: Irritable Affect description: congruent with mood Speech Volume: Normal Language & Vocabulary: consistent with education Thought Process: Racing Thought Content: Yes Guilt Perceptual Disturbances: No Auditory hallucinations, No Visual hallucinations Attention Span Ability: Capable of Focused Attention Memory Description: Grossly Intact Patient Reliability: Reliable Historian Fund of knowledge: Yes abstraction ability, Yes average Intelligence Estimate: Average Judgment: Limited Insight: Partial
[2017-08-20] MEDS: lamoTRIgine 25 MG TABLET PO SCH (20:24)
[2017-08-20] MEDS: traZODone 50 MG TABLET PO PRN (20:24)
[2017-08-21] MEDS: Venlafaxine XR (24 HR) 150 MG CAP.ER.24H PO SCH (08:58)
[2017-08-21] MEDS: Gabapentin 100 MG CAPSULE PO SCH (08:58)
[2017-08-21] MEDS: Venlafaxine XR (24 HR) 75 MG CAP.ER.24H PO SCH (08:58)
[2017-08-21] MEDS: MOM Conc 10 ML UD.LIQ PO SCH (08:59)
--- NOTE | 2017-08-21 11:34 | Psychiatry Progress Note ---
Date of Encounter: 08/21/17 Time of Encounter: 11:15 Subjective Interval history: Patient seen today case d/w treatment team. States i am not good , i have pain and i can barely sleep because of pain , i am tired and exhausted, feeling depress and dysphoric today. i room only attended one group . i do not want to live like this , i wish i would not wake up in morning . she is increasingly depress today . will dc gabapentin and continue lamictal. increase effexor to 300 mg po am for depression and anxiety. Review of Systems Psychiatric: Reports: depression, suicidal ideation, difficulty concentrating, hopelessness Results - Vital Signs Vital Signs: Temp Pulse Resp BP Pulse Ox 98 F 84 20 131/88 97 08/21/17 09:00 08/21/17 09:00 08/21/17 09:00 08/21/17 09:00 08/15/17 00:48 Assessment and Plan (1) Suicidal ideation Current visit: Yes Status: Acute Risks, benefits, side effects, alternatives discussed w/pt: Yes Patient agreeable to treatment: Yes (2) Bipolar disorder, current episode mixed, severe, without psychotic features Current visit: Yes Status: Acute Risks, benefits, side effects, alternatives discussed w/pt: Yes Patient agreeable to treatment: Yes (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 Tammie Hmuphrey outpatient psychiatric assessment and medication management services. The above appointment is with for outpatient psychiatric assessment and medication management services. Please arrive 30 minutes early to complete paperwork. Please bring your photo ID (bring proof of address if you do not have an ID) and medication list. The above appointment(s) reflects first availability. You may contact the office regularly to check for cancellations that may allow you to be seen sooner. Additionally, the new counseling assigned to you will contact you directly to schedule your intake appointment for case management and mental health counseling services. ) [facility] [Outside] (You will resume weekly substance abuse counseling services on discharge from the hospital. ) Psychiatry Exam - Constitutional Vitals: Temp Pulse Resp BP Pulse Ox 98 F 84 20 131/88 97 08/21/17 09:00 08/21/17 09:00 08/21/17 09:00 08/21/17 09:00 08/15/17 00:48 General appearance: age & developmentally appropriate - Musculoskeletal Gait: slow Station: other Strength & Tone: normal for patient - Psychiatric Patient Orientation: Yes Person, Yes Time, Yes Place Level of alertness: Alert Behavior: cooperative, withdrawn Psychomotor activity: Slowed Eye Contact: Minimal Contact Mood Description: Depressed, Anxious Affect description: congruent with mood Speech Volume: Soft/Quiet Speech pattern: coherent Language & Vocabulary: consistent with education Thought Process: Intact Thought Content: Yes Suicidal ideation, Yes Guilt Attention Span Ability: Unable to Sustain Attention Memory Description: Grossly Intact Patient Reliability: Reliable Historian Fund of knowledge: Yes abstraction ability Intelligence Estimate: Average Judgment: Limited Insight: Partial
[2017-08-21] MEDS: lamoTRIgine 25 MG TABLET PO SCH (21:16)
[2017-08-21] MEDS: traZODone 50 MG TABLET PO PRN (21:16)
[2017-08-21] MEDS: hydrOXYzine pamoate 25 MG CAPSULE PO PRN (21:19)
[2017-08-22] MEDS: MOM Conc 10 ML UD.LIQ PO SCH (09:28)
[2017-08-22] MEDS: Venlafaxine XR (24 HR) 150 MG CAP.ER.24H PO SCH ×2 (09:29)
--- NOTE | 2017-08-22 11:58 | Psychiatry Progress Note ---
Date of Encounter: 08/22/17 Time of Encounter: 11:35 Subjective Interval history: Patient seen today case d/w treatment team. States i was doing bad till last night, I was up till last night i was crying and hopeless and wanted to give up. But then my sponsor came to visit me and i spilled all out to her as i was very negative as there was no hope. She realized I was so upset with my sister but she told me its ok to let her go for short time. She left me meditation book , i was still upset and lot of physical pain. I was pissed why i was alive but then i prayed and got up at 3 am and was sitting in day room till 4 am . This morning i feel like inner peace , the pain is still bad but i can hold my self and i can walk but slow and i feel combinations of things are helping me. Review of Systems Psychiatric: Reports: depression, suicidal ideation, difficulty concentrating, hopelessness Results - Vital Signs Vital Signs: Temp Pulse Resp BP Pulse Ox 98.1 F 80 16 113/74 97 08/22/17 09:00 08/22/17 09:00 08/22/17 09:00 08/22/17 09:00 08/15/17 00:48 Assessment and Plan (1) Suicidal ideation Current visit: Yes Status: Acute Plan: Continue hospitalization, Close observation, Suicide Precautions per unit protocol, Encourage participation in unit milieu, Group Therapy, Monitor sleep, Monitor appetite, Family/Supportive other meeting Risks, benefits, side effects, alternatives discussed w/pt: Yes Patient agreeable to treatment: Yes (2) Bipolar disorder, current episode mixed, severe, without psychotic features Current visit: Yes Status: Acute Plan: Continue hospitalization, Close observation, Suicide Precautions per unit protocol, Encourage participation in unit milieu, Group Therapy, Monitor sleep, Monitor appetite, Family/Supportive other meeting Risks, benefits, side effects, alternatives discussed w/pt: Yes Patient agreeable to treatment: Yes (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 Tammie Humphrey outpatient psychiatric assessment and medication management services. The above appointment is with for outpatient psychiatric assessment and medication management services. Please arrive 30 minutes early to complete paperwork. Please bring your photo ID (bring proof of address if you do not have an ID) and medication list. The above appointment(s) reflects first availability. You may contact the office regularly to check for cancellations that may allow you to be seen sooner. Additionally, the new counseling assigned to you will contact you directly to schedule your intake appointment for case management and mental health counseling services. ) [facility] Michelle [facility] [Outside] (You will resume substance abuse counseling services on discharge from the hospital. ) Mo Vences, [Partnered Physician] - 09/02/17 8:00 am (The above appointment is with Dr. Vences at [facility]. Please arrive 10 minutes early to complete the check-in process. Please also bring your insurance card, photo ID, and medication list to this appointment. If you are unable to keep this appointment, 24 hour business notice of cancellation is expected. If you miss your new patient appointment, you cannot be re-scheduled in this practice. The above appointment(s) reflects first availability. You may contact the office regularly to check for cancellations that may allow you to be seen sooner.) Psychiatry Exam - Constitutional Vitals: Temp Pulse Resp BP Pulse Ox 98.1 F 80 16 113/74 97 08/22/17 09:00 08/22/17 09:00 08/22/17 09:00 08/22/17 09:00 08/15/17 00:48 General appearance: age & developmentally appropriate, well-groomed, well- nourished - Musculoskeletal Gait: slow Station: relaxed Strength & Tone: normal for patient - Psychiatric Patient Orientation: Yes Person, Yes Time, Yes Place Level of alertness: Alert Behavior: cooperative, anxious Psychomotor activity: Slowed Eye Contact: Maintains Eye Contact Mood Description: Depressed, Anxious Affect description: congruent with mood Speech Volume: Normal Speech pattern: normal rate, normal rhythm, normal tone, fluent, spontaneous Language & Vocabulary: consistent with education Thought Process: Circumstantial Thought Content: Yes Guilt Perceptual Disturbances: No Auditory hallucinations, No Visual hallucinations Attention Span Ability: Capable of Focused Attention Memory Description: Grossly Intact Patient Reliability: Reliable Historian Fund of knowledge: Yes abstraction ability, Yes aware of current events Intelligence Estimate: Average Judgment: Limited Insight: Partial
[2017-08-22] MEDS: lamoTRIgine 25 MG TABLET PO SCH (21:11)
[2017-08-22] MEDS: traZODone 50 MG TABLET PO PRN (21:11)
[2017-08-22] MEDS: hydrOXYzine pamoate 25 MG CAPSULE PO PRN (21:11)
[2017-08-23] MEDS: MOM Conc 10 ML UD.LIQ PO SCH (08:03)
[2017-08-23] MEDS: Venlafaxine XR (24 HR) 150 MG CAP.ER.24H PO SCH ×2 (08:04)
[2017-08-23] MEDS: lamoTRIgine 25 MG TABLET PO SCH ×2 (08:04→21:00)
--- NOTE | 2017-08-23 12:29 | Psychiatry Progress Note ---
Date of Encounter: 08/23/17 Time of Encounter: 12:00 Subjective Interval history: Patient seen today , case d/w staff, she got 4 hrs of sleep. I am ok , i am not sleeping well as my pain but i have been moving better , my moods are better today even though i did not sleep well, i went outside with other clients and i feel better, suicidal thoughts none today. denies side effetcs. patient improving , plan to discharge on Friday to recovery center. Review of Systems Psychiatric: Reports: depression, suicidal ideation, difficulty concentrating, hopelessness Results - Vital Signs Vital Signs: Temp Pulse Resp BP Pulse Ox 97.8 F 80 18 123/84 97 08/23/17 08:42 08/23/17 08:42 08/23/17 08:42 08/23/17 08:42 08/15/17 00:48 Assessment and Plan (1) Suicidal ideation Current visit: Yes Status: Acute Plan: Continue hospitalization, Close observation, Suicide Precautions per unit protocol, Encourage participation in unit milieu, Group Therapy, Monitor sleep, Monitor appetite, Family/Supportive other meeting Risks, benefits, side effects, alternatives discussed w/pt: Yes Patient agreeable to treatment: Yes (2) Bipolar disorder, current episode mixed, severe, without psychotic features Current visit: Yes Status: Acute Plan: Continue hospitalization, Close observation, Suicide Precautions per unit protocol, Encourage participation in unit milieu, Group Therapy, Monitor sleep, Monitor appetite, Family/Supportive other meeting Risks, benefits, side effects, alternatives discussed w/pt: Yes Patient agreeable to treatment: Yes (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 Tammie Humphrey outpatient psychiatric assessment and medication management services. The above appointment is with for outpatient psychiatric assessment and medication management services. Please arrive 30 minutes early to complete paperwork. Please bring your photo ID (bring proof of address if you do not have an ID) and medication list. The above appointment(s) reflects first availability. You may contact the office regularly to check for cancellations that may allow you to be seen sooner. Additionally, the new counseling assigned to you will contact you directly to schedule your intake appointment for case management and mental health counseling services. ) Wilian Michelle [facility] [Outside] (You will resume substance abuse counseling services on discharge from the hospital. ) Mo Vences DO [Partnered Physician] - 09/02/17 8:00 am (The above appointment is with Dr. Vences at [facility]. Please arrive 10 minutes early to complete the check-in process. Please also bring your insurance card, photo ID, and medication list to this appointment. If you are unable to keep this appointment, 24 hour business notice of cancellation is expected. If you miss your new patient appointment, you cannot be re-scheduled in this practice. The above appointment(s) reflects first availability. You may contact the office regularly to check for cancellations that may allow you to be seen sooner.) Psychiatry Exam - Constitutional Vitals: Temp Pulse Resp BP Pulse Ox 97.8 F 80 18 123/84 97 08/23/17 08:42 08/23/17 08:42 08/23/17 08:42 08/23/17 08:42 08/15/17 00:48 General appearance: age & developmentally appropriate, well-groomed, well- nourished - Musculoskeletal Gait: slow Station: relaxed Strength & Tone: normal for patient - Psychiatric Patient Orientation: Yes Person, Yes Time, Yes Place Level of alertness: Alert Behavior: cooperative, anxious Psychomotor activity: Slowed Eye Contact: Maintains Eye Contact Mood Description: Anxious Affect description: congruent with mood Speech Volume: Normal Speech pattern: normal rate, normal rhythm, normal tone, fluent, spontaneous Language & Vocabulary: consistent with education Thought Process: Linear, Goal Oriented Thought Content: No Suicidal ideation, No Homicidal ideation, No Overt delusions Perceptual Disturbances: No Auditory hallucinations, No Visual hallucinations Attention Span Ability: Capable of Focused Attention Memory Description: Grossly Intact Patient Reliability: Reliable Historian Fund of knowledge: Yes abstraction ability, Yes aware of current events Intelligence Estimate: Average Judgment: Fair Insight: Partial
[2017-08-23] MEDS: traZODone 50 MG TABLET PO PRN (21:00)
[2017-08-23] MEDS: hydrOXYzine pamoate 25 MG CAPSULE PO PRN (21:00)
[2017-08-24] MEDS: Ibuprofen 400 MG TABLET PO PRN ×3 (06:32→21:30)
[2017-08-24] MEDS: MOM Conc 10 ML UD.LIQ PO SCH (08:28)
[2017-08-24] MEDS: lamoTRIgine 25 MG TABLET PO SCH ×2 (08:29→20:45)
[2017-08-24] MEDS: Venlafaxine XR (24 HR) 150 MG CAP.ER.24H PO SCH ×2 (08:29)
--- NOTE | 2017-08-24 12:14 | Psychiatry Progress Note ---
Date of Encounter: 08/24/17 Time of Encounter: 11:42 Subjective Interval history: Patient seen today , case d/w staff. States i played corn haul yesterday with peers and it gave me pain in my hands i over did it, but better now. my moods are lot better and pain better. states trazodone helping her sleep and if i can raise the dose as she is taking daily. denies side effects. Review of Systems Psychiatric: Reports: depression, suicidal ideation, difficulty concentrating, hopelessness Results - Vital Signs Vital Signs: Temp Pulse Resp BP Pulse Ox 98.1 F 71 16 131/77 97 08/23/17 21:00 08/24/17 09:00 08/24/17 09:00 08/24/17 09:00 08/15/17 00:48 Assessment and Plan (1) Bipolar disorder, current episode mixed, severe, without psychotic features Current visit: Yes Status: Acute Plan: Continue hospitalization, Close observation, Suicide Precautions per unit protocol, Encourage participation in unit milieu, Group Therapy, Monitor sleep, Monitor appetite, Family/Supportive other meeting Risks, benefits, side effects, alternatives discussed w/pt: Yes Patient agreeable to treatment: Yes (2) Suicidal ideation Current visit: Yes Status: Resolved Plan: Continue hospitalization, Close observation, Suicide Precautions per unit protocol, Encourage participation in unit milieu, Group Therapy, Monitor sleep, Monitor appetite, Family/Supportive other meeting Risks, benefits, side effects, alternatives discussed w/pt: Yes Patient agreeable to treatment: Yes (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 Tammie Humphrey outpatient psychiatric assessment and medication management services. The above appointment is with for outpatient psychiatric assessment and medication management services. Please arrive 30 minutes early to complete paperwork. Please bring your photo ID (bring proof of address if you do not have an ID) and medication list. The above appointment(s) reflects first availability. You may contact the office regularly to check for cancellations that may allow you to be seen sooner. Additionally, the new counseling assigned to you will contact you directly to schedule your intake appointment for case management and mental health counseling services. ) Wilian Michelle [facility] [Outside] (You will resume substance abuse counseling services on discharge from the hospital. ) Mo Vences DO [Partnered Physician] - 09/02/17 8:00 am (The above appointment is with Dr. Vences at [facility]. Please arrive 10 minutes early to complete the check-in process. Please also bring your insurance card, photo ID, and medication list to this appointment. If you are unable to keep this appointment, 24 hour business notice of cancellation is expected. If you miss your new patient appointment, you cannot be re-scheduled in this practice. The above appointment(s) reflects first availability. You may contact the office regularly to check for cancellations that may allow you to be seen sooner.) Psychiatry Exam - Constitutional Vitals: Temp Pulse Resp BP Pulse Ox 98.1 F 71 16 131/77 97 08/23/17 21:00 08/24/17 09:00 08/24/17 09:00 08/24/17 09:00 08/15/17 00:48 General appearance: age & developmentally appropriate, well-groomed, well- nourished - Musculoskeletal Gait: normal Station: relaxed Strength & Tone: normal for patient - Psychiatric Patient Orientation: Yes Person, Yes Time, Yes Place Level of alertness: Alert Behavior: calm, cooperative, anxious Psychomotor activity: Normal Eye Contact: Maintains Eye Contact Mood Description: Depressed, Anxious Affect description: congruent with mood, full range Speech Volume: Normal Speech pattern: normal rate, normal rhythm, normal tone, fluent, spontaneous Language & Vocabulary: consistent with education Thought Process: Linear, Goal Oriented Thought Content: No Suicidal ideation, No Homicidal ideation, No Overt delusions Perceptual Disturbances: No Auditory hallucinations, No Visual hallucinations Attention Span Ability: Capable of Focused Attention Memory Description: Grossly Intact Patient Reliability: Reliable Historian Fund of knowledge: Yes abstraction ability, Yes aware of current events Intelligence Estimate: Average Judgment: Fair Insight: Partial
[2017-08-24] MEDS ORDERED: traZODone 50 MG TABLET PO SCH (21:00)
[2017-08-24] MEDS: hydrOXYzine pamoate 25 MG CAPSULE PO PRN (23:54)
[2017-08-25] MEDS: MOM Conc 10 ML UD.LIQ PO SCH (08:46)
[2017-08-25] MEDS: Venlafaxine XR (24 HR) 150 MG CAP.ER.24H PO SCH ×2 (08:47→08:49)
[2017-08-25] MEDS: lamoTRIgine 25 MG TABLET PO SCH (08:50)
[2017-08-25 09:25] VITALS: BP 134/84
--- NOTE | 2017-08-25 10:09 | Discharge Summary ---
Date of Encounter: 08/25/17 Time of Encounter: 09:45 Diagnosis - Discharge Diagnosis (1) Bipolar disorder, current episode mixed, severe, without psychotic features Status: Acute Comments: Patient shown improvement with her mood instability and denies suicide ideation , not in danger to self/others at present. (2) Suicidal ideation Status: Resolved (3) Other specific personality disorders Status: Chronic Medications - Discharge Medications Prescriptions: Buspirone HCl [Buspar] 5 mg PO TID #90 tablet lamoTRIgine [Lamictal] 25 mg PO BID #60 tablet Prazosin [Minipress] 1 mg PO HS #30 capsule traZODone [TraZODone] 100 mg PO HS #30 tablet Venlafaxine XR (24 HR) [Effexor Xr] 150 mg PO DAILY #60 cap.er.24h Ibuprofen [Motrin] 600 mg PO Q8HR PRN 08/15/17 [History] Levothyroxine Sodium [Synthroid] 200 mcg PO 0630 08/15/17 [History] Lisinopril [Zestril] 10 mg PO DAILY 08/15/17 [History] Buspirone HCl [Buspar] 5 mg PO TID #90 tablet 08/25/17 [Rx] Levothyroxine [Synthroid] 200 mcg PO DAILY@0630 tablet 08/25/17 [Rx] Lisinopril [Zestril] 10 mg PO DAILY tablet 08/25/17 [Rx] Prazosin [Minipress] 1 mg PO HS #30 capsule 08/25/17 [Rx] Venlafaxine XR (24 HR) [Effexor Xr] 150 mg PO DAILY #60 cap.er.24h 08/25/17 [Rx] lamoTRIgine [Lamictal] 25 mg PO BID #60 tablet 08/25/17 [Rx] traZODone [TraZODone] 100 mg PO HS #30 tablet 08/25/17 [Rx] 3 Allergy/AdvReac Type Severity Reaction Status Date / Time Penicillins [PCN] Allergy Anaphylaxis Verified 08/15/17 10:21 Provider Date of admission: 08/15/17 05:33 Primary care physician: PCP NONE Psychiatry Exam - Constitutional Vitals: Temp Pulse Resp BP Pulse Ox 97.4 F L 85 20 134/84 97 08/25/17 09:00 08/25/17 09:00 08/25/17 09:00 08/25/17 09:00 08/15/17 00:48 General appearance: age & developmentally appropriate, well-groomed, well- nourished - Musculoskeletal Gait: normal Station: relaxed Strength & Tone: normal for patient - Psychiatric Patient Orientation: Yes Person, Yes Time, Yes Place Level of alertness: Alert Behavior: cooperative, anxious Psychomotor activity: Normal Eye Contact: Maintains Eye Contact Mood Description: Anxious Affect description: congruent with mood Speech Volume: Normal Speech pattern: normal rate, normal rhythm, normal tone, fluent, spontaneous Language & Vocabulary: consistent with education Thought Process: Linear, Goal Oriented Thought Content: No Suicidal ideation, No Homicidal ideation, No Overt delusions Perceptual Disturbances: No Auditory hallucinations, No Visual hallucinations Attention Span Ability: Capable of Focused Attention Memory Description: Grossly Intact Patient Reliability: Reliable Historian Fund of knowledge: Yes abstraction ability, Yes aware of current events Intelligence Estimate: Average Judgment: Fair Insight: Partial Hospital Course Hospital course: Ms. Becerril is a 46 year old female The patient was brought in from [facility]. She had been residing there. Chief complaint having thoughts of not waking up and lack of sleep I was depressed and was not sure whether was recovery versus depression. Upon Admission the patient had depression she was tossing and turning and she saw images where she shot herself with a gun. She is praying that she might and she thought about going and getting a gun and using she presented in the emergency room. The patient has a history of substance abuse and her last use was 03/31/2017. This included cocaine. She had 5 months clean and she has a history of a long period of sobriety 10 years. 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 Patient is also smoker of tobacco. The patient's been depressed and going to mental health. Her previous discharge summary shows inpatient and outpatient treatment or psychiatric hospitalizations or too numerous to count there began at age 16 with an overdose of sleeping pills and included counseling at site [facility]. A diagnosis of bipolar disorder was given but later borderline personality disorder was diagnosed the alcohol caused anger problems and relationship problems no legal problems or health problems. She was 30 she was seen by Dr. Dwaine long [facility] she 30 days clean but relapsed. During Course of Hospitalization she initially was very depress and preoccupied with her pain , she was treated with effexor xr and zoloft was discontinued, she was given buspar for anxiety and trazodone helped her sleep better, prazosin given for nightmares. she was started on neurontin and baclofen and it helped her pain significantly but she was not able to continue them at recovery place. therefore they were dc , she got more depress and moods up and down as pain is trigger for her depression and sleep not good, Lamictal was added and borderline personality education and counselling given which helped her , and her pain improved , moods better and sleep good. Denies side effects BP stable and labs stable, she showed significant improvement and will be dc to recovery center. she is not suicidal/homicidal , no psychosis , some anxiety as going out but depression significantly better. Time spent discussing smoking cessation with patient: 3 to 10 minutes Does patient wish to continue nicotine replacement upon disc: No (patient since here has not used nicotine patch and plans to stop smoking.) - Time Spent with Patient Total time spent providing and/or coordinating discharge services: Greater than 30 minutes Assessment and Plan - Patient/Caregiver Discharge Instructions Activity: resume usual activities as tolerated Diet: regular diet - Follow up Plan Follow up with: [facility] [Outside] - 09/15/17 1:00 pm (The above appointment is with for Dr. Tammie Humphrey outpatient psychiatric assessment and medication management services. The above appointment is with for outpatient psychiatric assessment and medication management services. Please arrive 30 minutes early to complete paperwork. Please bring your photo ID (bring proof of address if you do not have an ID) and medication list. The above appointment(s) reflects first availability. You may contact the office regularly to check for cancellations that may allow you to be seen sooner. Additionally, the new counseling assigned to you will contact you directly to schedule your intake appointment for case management and mental health counseling services. ) Wilian Michelle [facility] [Outside] (You will resume substance abuse counseling services on discharge from the hospital. ) Mo Vences DO [Partnered Physician] - 09/02/17 8:00 am (The above appointment is with Dr. Vences at [facility]. Please arrive 10 minutes early to complete the check-in process. Please also bring your insurance card, photo ID, and medication list to this appointment. If you are unable to keep this appointment, 24 hour business notice of cancellation is expected. If you miss your new patient appointment, you cannot be re-scheduled in this practice. The above appointment(s) reflects first availability. You may contact the office regularly to check for cancellations that may allow you to be seen sooner.) Functional capacity at discharge: independent ambulation Overall status at discharge: Stable Disposition: Transfer Inpatient Rehab Fac Quality - Multiple Antipsychotics Patient discharged on 2 or more antipsychotic medications: No Procedures - Procedures Procedures: Medication Management, Crisis Stabilization, Supportive Therapy, Group Therapy, Psychoeducational Therapy
== END 2017-08-25 11:27 | DRG 885 ==
LOC: EMEROO 00:47 → SUATTDRO 05:33 → 1ANU 05:33
PROVIDERS: ADMIT Psychiatry & Neurology Forensic Psychiatry; ATTEND Psychiatry & Neurology Psychiatry